=== PATIENT | female | born 2000 ===

== ENCOUNTER 2019-10-08 00:10 | Emergency (ER) | payer SELFPAY ==
--- NOTE | 2019-10-08 00:36 | Emergency Department Report ---
ED General Adult HPI - General Chief complaint: Psych Stated complaint: MH Time Seen by Provider: 10/08/19 00:24 Source: patient, EMS (EMS records not available at time of chart dictation.), RN notes reviewed, old records reviewed Mode of arrival: Stretcher Limitations: Language Barrier, Other (patient is psychotic. The patient is a poor historian) - History of Present Illness Initial comments: During the entire history and physical examination, I am chaperoned by nurse Carolynn Borrego The patient is a 19-year-old female. This patient is not known to this provider previously. She is sent to the ER from a local psychiatric facility reportedly for aggressive behavior. Patient is apparently , and has a history of psychiatric disease, and has not been on lithium for a few months. The patient denies complaints to myself. She denies physical pain. She believes that she is the voice of God. She does not want to harm herself or harm other people. She arrives on a 1013 for hallucinations, bipolar, reportedly "hatred toward mother with God talking to her to prevent [ ] her mom." Patient is obviously psychotic, does not have insight to enter her symptoms. However she denies physical pain. She was reportedly seen at another hospital earlier on today, at [facility], where she was cleared. She is from [place] and does not have a local IN SERVICE COORDINATOR doctor. She is not sure about the status of her care -: This afternoon Improves with: none Worsens with: none - Related Data Home Medications Medication Instructions Recorded Confirmed Last Taken Vit No.129/Iron/Folic 1 each PO DAILY 10/08/19 10/08/19 Unknown [ Tablet] Previous Rx's Medication Instructions Recorded Last Taken Type cephALEXin [Keflex] 500 mg PO Q6HR #20 capsule 10/08/19 Unknown Rx Allergies Allergy/AdvReac Type Severity Reaction Status Date / Time No Known Allergies Allergy Verified 10/08/19 01:38 ED Review of Systems ROS: Stated complaint: MH Other details as noted in HPI Comment: Unobtainable due to pts medical conditions (psychotic) ED Past Medical Hx - Medications Home Medications: Home Medications Medication Instructions Recorded Confirmed Last Taken Type Vit No.129/Iron/Folic 1 each PO DAILY 10/08/19 10/08/19 Unknown History [ Tablet] cephALEXin [Keflex] 500 mg PO Q6HR #20 capsule 10/08/19 Unknown Rx ED Physical Exam - General Limitations: Other (psychotic) General appearance: alert, in no apparent distress - Head Head exam: Present: atraumatic, normocephalic - Eye Eye exam: Present: normal appearance, EOMI. Absent: nystagmus - ENT ENT exam: Present: normal exam, normal orophraynx, mucous membranes moist, normal external ear exam - Neck Neck exam: Present: normal inspection, full ROM. Absent: tenderness, meningismus - Respiratory Respiratory exam: Present: normal lung sounds bilaterally. Absent: respiratory distress - Cardiovascular Cardiovascular Exam: Present: regular rate, normal rhythm, normal heart sounds. Absent: bradycardia, tachycardia, irregular rhythm, systolic murmur, diastolic murmur, rubs, gallop - GI/Abdominal GI/Abdominal exam: Present: soft. Absent: distended, tenderness, guarding, rebound, rigid - Extremities Exam Extremities exam: Present: normal inspection, full ROM, other (2+ pulses noted in the bilateral upper and lower extremities. The pelvis is stable. There is no long bony tenderness. The muscular compartments are soft. There is no redness, pus, streaking or erythema.). Absent: pedal edema, joint swelling, calf tenderness - Back Exam Back exam: Present: normal inspection. Absent: tenderness, CVA tenderness (R), CVA tenderness (L), paraspinal tenderness, vertebral tenderness - Neurological Exam Neurological exam: Present: alert, normal gait, other (there is no facial droop. The tongue is midline. Extraocular movements are intact bilaterally. Speaking in full sentences. Hearing is grossly intact. 5 out of 5 strength bilateral upper and lower extremities. Sensation is intact to light touch bilateral upper and lower extremities.) - Psychiatric Psychiatric exam: Present: anxious - Skin Skin exam: Present: warm, dry, intact, normal color. Absent: rash ED Course Vital Signs 10/08/19 00:53 Temperature 99.1 F Pulse Rate 95 H Respiratory 18 Rate Blood Pressure 129/79 [Left] O2 Sat by Pulse 100 Oximetry - Reevaluation(s) Reevaluation #1: 10/08/19 01:21 Differential diagnoses, including but not limited to: Incidental , psychosis, medical clearance for psychiatric placement Assessment and plan: 19-year-old female who is , uncertain what care she may have had, presenting with hallucinations, delusions and obvious psychosis. She is afebrile with reassuring vital signs. Her physical examination is unremarkable. She is walking with a steady gait. Bedside ultrasound confirms intrauterine . She just had a complete and thorough medical clearance at another hospital. Repeat laboratory studies, ultrasound are ordered We will reassess after her data points. Reevaluation #2: 10/08/19 02:33 Laboratory studies reviewed and appreciated. IV fluids ordered for elevated CK. Ultrasound reviewed and appreciated. Contacted gynecology on-call, Dr. Smith, we discussed the patient's history, physical and ultrasound. Dr. Smith specifically advises the patient does not require monitoring as this is not a viable . Patient can tolerate oral feeds and drink plenty of fluids by mouth, therefore, CK should decrease on its own. Renal function appears to be within normal limits. At this point in time, the patient does not appear to have an immediate medical contraindication to continued psychiatric care. Straight to follow-up in outpatient IN SERVICE COORDINATOR once her psychiatric disease has been stabilized. Reevaluation #3: 10/08/19 05:26 Patient becoming progressively more agitated. does not respond to verbal descalation techniques, verbal calming techniques, show of force also agitating other patients at this time will be medicated for patient, staff safety ED Medical Decision Making - Lab Data Result diagrams: 10/08/19 00:42 10/08/19 00:37 Vital Signs 10/08/19 00:53 Temperature 99.1 F Pulse Rate 95 H Respiratory 18 Rate Blood Pressure 129/79 [Left] O2 Sat by Pulse 100 Oximetry Lab Results 10/08/19 Range/Units 00:42 WBC 8.8 (4.5-11.0) K/mm3 RBC 3.75 (3.65-5.03) M/mm3 Hgb 11.4 (10.1-14.3) gm/dl Hct 32.0 (30.3-42.9) % MCV 85 (79-97) fl MCH 30 (28-32) pg MCHC 36 H (30-34) % RDW 15.0 (13.2-15.2) % Plt Count 222 (140-440) K/mm3 Lab Results 10/08/19 10/08/19 10/08/19 Range/Units 00:37 00:37 00:42 WBC 8.8 (4.5-11.0) K/mm3 RBC 3.75 (3.65-5.03) M/mm3 Hgb 11.4 (10.1-14.3) gm/dl Hct 32.0 (30.3-42.9) % MCV 85 (79-97) fl MCH 30 (28-32) pg MCHC 36 H (30-34) % RDW 15.0 (13.2-15.2) % Plt Count 222 (140-440) K/mm3 Sodium 141 (137-145) mmol/L Potassium 3.9 (3.6-5.0) mmol/L Chloride 106.9 (98-107) mmol/L Carbon Dioxide 21 L (22-30) mmol/L Anion Gap 17 mmol/L BUN 9 (7-17) mg/dL Creatinine 0.4 L (0.7-1.2) mg/dL Estimated GFR > 60 ml/min BUN/Creatinine Ratio 23 % Glucose 77 (65-100) mg/dL Calcium 9.3 (8.4-10.2) mg/dL Total Bilirubin 0.20 (0.1-1.2) mg/dL AST 67 H (5-40) units/L ALT 50 (7-56) units/L Alkaline Phosphatase 97 (35-129) units/L Total Protein 7.0 (6.3-8.2) g/dL Albumin 3.6 L (3.9-5) g/dL Albumin/Globulin Ratio 1.1 % HCG, Quant 3753 H (0-4) mIU/mL Vital Signs 10/08/19 00:53 Temperature 99.1 F Pulse Rate 95 H Respiratory 18 Rate Blood Pressure 129/79 [Left] O2 Sat by Pulse 100 Oximetry Lab Results 10/08/19 10/08/19 10/08/19 Range/Units 00:37 00:37 00:37 WBC (4.5-11.0) K/mm3 RBC (3.65-5.03) M/mm3 Hgb (10.1-14.3) gm/dl Hct (30.3-42.9) % MCV (79-97) fl MCH (28-32) pg MCHC (30-34) % RDW (13.2-15.2) % Plt Count (140-440) K/mm3 Sodium 141 (137-145) mmol/L Potassium 3.9 (3.6-5.0) mmol/L Chloride 106.9 (98-107) mmol/L Carbon Dioxide 21 L (22-30) mmol/L Anion Gap 17 mmol/L BUN 9 (7-17) mg/dL Creatinine 0.4 L (0.7-1.2) mg/dL Estimated GFR > 60 ml/min BUN/Creatinine Ratio 23 % Glucose 77 (65-100) mg/dL Calcium 9.3 (8.4-10.2) mg/dL Magnesium 1.90 (1.7-2.3) mg/dL Total Bilirubin 0.20 (0.1-1.2) mg/dL AST 67 H (5-40) units/L ALT 50 (7-56) units/L Alkaline Phosphatase 97 (35-129) units/L Total Creatine Kinase 2536 H (30-135) units/L Total Protein 7.0 (6.3-8.2) g/dL Albumin 3.6 L (3.9-5) g/dL Albumin/Globulin Ratio 1.1 % HCG, Quant 3753 H (0-4) mIU/mL Salicylates (2.8-20.0) mg/dL Acetaminophen (10.0-30.0) ug/mL Plasma/Serum Alcohol (0-0.07) % 10/08/19 10/08/19 10/08/19 Range/Units 00:37 00:37 00:37 WBC (4.5-11.0) K/mm3 RBC (3.65-5.03) M/mm3 Hgb (10.1-14.3) gm/dl Hct (30.3-42.9) % MCV (79-97) fl MCH (28-32) pg MCHC (30-34) % RDW (13.2-15.2) % Plt Count (140-440) K/mm3 Sodium (137-145) mmol/L Potassium (3.6-5.0) mmol/L Chloride (98-107) mmol/L Carbon Dioxide (22-30) mmol/L Anion Gap mmol/L BUN (7-17) mg/dL Creatinine (0.7-1.2) mg/dL Estimated GFR ml/min BUN/Creatinine Ratio % Glucose (65-100) mg/dL Calcium (8.4-10.2) mg/dL Magnesium (1.7-2.3) mg/dL Total Bilirubin (0.1-1.2) mg/dL AST (5-40) units/L ALT (7-56) units/L Alkaline Phosphatase (35-129) units/L Total Creatine Kinase (30-135) units/L Total Protein (6.3-8.2) g/dL Albumin (3.9-5) g/dL Albumin/Globulin Ratio % HCG, Quant (0-4) mIU/mL Salicylates < 0.3 L (2.8-20.0) mg/dL Acetaminophen < 5.0 L (10.0-30.0) ug/mL Plasma/Serum Alcohol < 0.01 (0-0.07) % 10/08/19 Range/Units 00:42 WBC 8.8 (4.5-11.0) K/mm3 RBC 3.75 (3.65-5.03) M/mm3 Hgb 11.4 (10.1-14.3) gm/dl Hct 32.0 (30.3-42.9) % MCV 85 (79-97) fl MCH 30 (28-32) pg MCHC 36 H (30-34) % RDW 15.0 (13.2-15.2) % Plt Count 222 (140-440) K/mm3 Sodium (137-145) mmol/L Potassium (3.6-5.0) mmol/L Chloride (98-107) mmol/L Carbon Dioxide (22-30) mmol/L Anion Gap mmol/L BUN (7-17) mg/dL Creatinine (0.7-1.2) mg/dL Estimated GFR ml/min BUN/Creatinine Ratio % Glucose (65-100) mg/dL Calcium (8.4-10.2) mg/dL Magnesium (1.7-2.3) mg/dL Total Bilirubin (0.1-1.2) mg/dL AST (5-40) units/L ALT (7-56) units/L Alkaline Phosphatase (35-129) units/L Total Creatine Kinase (30-135) units/L Total Protein (6.3-8.2) g/dL Albumin (3.9-5) g/dL Albumin/Globulin Ratio % HCG, Quant (0-4) mIU/mL Salicylates (2.8-20.0) mg/dL Acetaminophen (10.0-30.0) ug/mL Plasma/Serum Alcohol (0-0.07) % - Radiology Data Radiology results: pending, report reviewed, image reviewed Print Report Referring Physician: TOBY PINEDA Patient Name: NIKOLAY RAMÍREZ Date of : 2000 Sex: Female Report Date: 2019-10-08 Report Status: Finalized Findings [facility] [address] [place] [address] Ultrasound Report Signed Patient: NIKOLAY RAMÍREZ MR#: [id number] : 2000 Acct:[id number] Age/Sex: 19 / F ADM Date: 10/08/19 Loc: ED Attending Dr: Ordering Physician: TOBY PINEDA MD Date of Service: 10/08/19 Procedure(s): US OB >= 14 weeks Fetus Accession Number(s): [id number] cc: TOBY PINEDA MD ULTRASOUND OBSTETRIC INDICATION / CLINICAL INFORMATION: uncertain care. Clinical Gestational Age (GA): TECHNIQUE: Transabdominal. COMPARISON: None available. FINDINGS: There is a single intrauterine . Biparietal Diameter = 5.3 cm = 20 weeks, 0 day(s). Head Circumference = 20.7 cm = 22 weeks, 6 day(s). Abdominal Circumference = 18.1 cm = 23 weeks, 0 day(s). Femur Length = 3.8 cm = 22 weeks, 1 day(s). Average Ultrasound Age (AUA) = 22 weeks, 4 day(s). Heart Rate: 149 beats per minute. Estimated Weight in grams (if calculated): 516 Position: cephalic. Cervix: closed. Length in cm (if measured): 3.5 cm Placenta: anterior and free of the os. Amniotic Fluid Volume: normal Maternal Adnexa: No significant abnormality. IMPRESSION: 1. Single, living intrauterine with estimated sonographic age of 22 we eks, 4 day(s). 2. No significant sonographic abnormality. Signer Name: Wander Barron MD Signed: 10/08/2019 1:30 AM Workstation Name: [employer] Transcribed By: TONNY Dictated By: Wander Barron MD Electronically Authenticated By: Wander Barron MD Signed Date/Time: 10/08/19 0130 Critical care attestation.: If time is entered above; I have spent that time in minutes in the direct care of this critically ill patient, excluding procedure time. ED Disposition Clinical Impression: Psychosis, , Medical clearance for psychiatric admission Disposition: DC/TX-65 PSY HOSP/PSY UNIT Is pt being admited?: No Does the pt Need Aspirin: No Condition: Stable Additional Instructions: Patient should continue outpatient vitamins. Patient should drink 4-6 cups of water per day. Recommend follow-up with her outpatient IN SERVICE COORDINATOR doctor within the next 7 days. Patient does not appear to have an immediate medical contraindication to psychiatric admission, evaluation, consultation and placement. Please return to the emergency room right away with projectile vomiting, change in mental status, confusion, inability to tolerate liquid feeds, new, worsening or different symptoms not present on the initial emergency room evaluation. Prescriptions: cephALEXin [Keflex] 500 mg PO Q6HR #20 capsule Referrals: [facility] [Provider Group] - 3-5 Days [facility] [Provider Group] - 3-5 Days [facility] [Provider Group] - 3-5 Days
[2019-10-08 00:58] VITALS: BP 129/79
[2019-10-08 01:01] LABS: Hemoglobin 11.4 gm/dl (10.1-14.3); Mean Corpuscular HGB Conc 36 % (30-34); Mean Corpuscular Volume 85 fl (79-97); Platelet Count 222 K/mm3 (140-440); Red Blood Count 3.75 M/mm3 (3.65-5.03)
[2019-10-08 01:25] LABS: Alanine Aminotransferase 50 units/L (7-56); Albumin 3.6 g/dL (3.9-5); BUN/Creatinine Ratio 23; Blood Urea Nitrogen 9 mg/dL (7-17); Calcium 9.3 mg/dL (8.4-10.2); Hemolysis Index 3
[2019-10-08] MEDS ORDERED: diphenhydrAMINE 25 MG CAP PO ONE ×2 (01:28→01:31)
--- NOTE | 2019-10-08 01:34 | Ultrasound Report ---
ULTRASOUND OBSTETRIC INDICATION / CLINICAL INFORMATION: uncertain care. Clinical Gestational Age (GA): TECHNIQUE: Transabdominal. COMPARISON: None available. FINDINGS: There is a single intrauterine . Biparietal Diameter = 5.3 cm = 20 weeks, 0 day(s). Head Circumference = 20.7 cm = 22 weeks, 6 day(s). Abdominal Circumference = 18.1 cm = 23 weeks, 0 day(s). Femur Length = 3.8 cm = 22 weeks, 1 day(s). Average Ultrasound Age (AUA) = 22 weeks, 4 day(s). Heart Rate: 149 beats per minute. Estimated Weight in grams (if calculated): 516 Position: cephalic. Cervix: closed. Length in cm (if measured): 3.5 cm Placenta: anterior and free of the os. Amniotic Fluid Volume: normal Maternal Adnexa: No significant abnormality. IMPRESSION: 1. Single, living intrauterine with estimated sonographic age of 22 weeks, 4 day(s). 2. No significant sonographic abnormality. Signer Name: Wander Barron MD Signed: 10/08/2019 1:30 AM Workstation Name: [id number]
[2019-10-08] MEDS ORDERED: SODIUM CHLORIDE 0.9% 1000 ML 1,000 ML IV ONE (01:57)
[2019-10-08] MEDS ORDERED: SODIUM CHLORIDE 0.9% 1000 ML 2,000 ML IV ONE (01:57)
[2019-10-08 02:05] LABS: Bacteria,Urine 1+ /HPF (Negative); Bilirubin,Urine NEG (Negative); Blood,Urine NEG (Negative); Color,Urine Straw (Yellow); Protein,Urine <15 mg/dL mg/dL (Negative); Urobilinogen,Urine < 2.0 mg/dL (<2.0)
[2019-10-08] MEDS ORDERED: diphenhydrAMINE 50 MG/ML VIAL IV ONE (02:15)
[2019-10-08] MEDS ORDERED: HALOPERIDOL LACTATE 5 MG/1 ML INJ IM STA (05:24)
[2019-10-08] MEDS ORDERED: LORazepam 2 MG/ML VIAL IM STA (05:25)
[2019-10-08] MEDS ORDERED: LORazepam 2 MG/ML VIAL ONE (05:28)
[2019-10-08] MEDS ORDERED: LORazepam 2 MG/ML VIAL IM ONE (06:45)
== END 2019-10-08 09:08 ==
LOC: ED 00:10
DX: O99.342 Other mental disorders complicating pregnancy, second trimester (principal); F91.1 Conduct disorder, childhood-onset type; Z79.899 Other long term (current) drug therapy; Z3A.22 22 weeks gestation of pregnancy
CPT/HCPCS: 36415; 76805; 80053; 81001; 82550; 83735; 84702; 85027; 96372; 96374; 99285; J1200; J2060; J7030; 80320; G0480